=== PATIENT | male | born 1935 | race Caucasian/White ===

== ENCOUNTER 2018-03-29 10:36 | Day surgery (SDC) | payer OTHER ==
--- NOTE | 2018-03-28 17:46 | PREAC ---
Date/Time of Note Date/Time of Note DATE: 03/28/18 TIME: 17:44 Anesthesia Eval and Record Evaluation Time Pre-Procedure Interview DATE: 03/28/18 TIME: 17:44 Age 82 Sex male NPO: 8 hrs Preoperative diagnosis GI bleed Planned procedure EGD / Colonoscopy Past Medical History Past Medical History: Includes Cardio: HTN, Arrythmia (paroxysmal atrial fibrillation), CHF Endo: Diabetes Pulm: COPD, Other (respiratory failure) Renal: CKD GI: Obesity Surgery & Anesthesia Issues No known issue Meds Anticoagulation: No Beta Raheem within 24 hr: No Reason Beta Raheem not given: Pt. not on B-Raheem Meds reviewed: Yes Allergies Coded Allergies: No Known Allergy (Unverified , 03/08/18) Allergies Reviewed: Yes Labs/Studies Labs Reviewed: Reviewed by anesthesiologist test: N/A Pre-procedure Exam Airway: Adequate mouth opening Mallampati: Mallampati II Teeth: Normal Lung: Normal Heart: Normal ASA Physical Status ASA physical status: 3 Emergency: None Planned Anesthetic General/MAC: MAC Pre-operative Attestations Prior to commencing anesthesia and surgery, the patient was re-evaluated, there was verification of: *The patient's identity *The results of appropriate recent lab work and preoperative vital signs *The above evaluation not changing prior to induction *Anesthetic plan, risk benefits, alternative and complications discussed with patient/family; questions answered; patient/family understands, accepts and wishes to proceed. BUNNY TOLEDO Mar 28, 2018 17:46
[~2018-03-29] VITALS: Ht 180.3 cm; Wt 99.3 kg
--- NOTE | 2018-03-29 13:08 | HPN ---
Date/Time of Note Date/Time of Note DATE: 03/29/18 TIME: 13:08 Interval H&P Admission Note Pt. seen H&P reviewed: No system changes CHANO CHRISTIANSON MD Mar 29, 2018 13:08
[2018-03-29 13:10] VITALS: BP 134/71; PULSE 91; RESP 24
[2018-03-29] MEDS ORDERED: PROPOFOL 20 ML ONE (13:17)
[2018-03-29] MEDS ORDERED: FENTAnyl 50 MCG/ML VIAL ONE (13:18)
[2018-03-29 14:30] VITALS: BP 142/65; PULSE 80; RESP 21
--- NOTE | 2018-03-29 20:28 | PAC ---
Date/Time of Note Date/Time of Note DATE: 03/29/18 TIME: 20:27 Post-Anesthesia Notes Post-Anesthesia Note Last documented vital signs Vital Signs Date Temp Pulse Resp B/P (MAP) Pulse Ox O2 O2 Flow FiO2 Time Delivery Rate 03/29/18 98.1 80 21 142/65 4 Nasal 14:30 (90) Cannula 03/29/18 98.1 4.0 13:10 Activity: WNL Respiratory function: WNL Cardiovascular function: WNL Mental status: Baseline Pain reasonably controlled: Yes Hydration appropriate: Yes Nausea/Vomiting absent: No JOHN LIU MD Mar 29, 2018 20:28
== END 2018-03-29 15:47 | disposition home or self-care (01) ==
LOC: SDS 10:36 → GIL 10:36
PROVIDERS: ATTEND Internal Medicine Gastroenterology
DX: R19.5 Other fecal abnormalities (principal); K29.30 Chronic superficial gastritis without bleeding; I48.0 Paroxysmal atrial fibrillation; E11.9 Type 2 diabetes mellitus without complications; I13.0 Hypertensive heart and chronic kidney disease with heart failure and stage 1 through stage 4 chronic kidney disease, or unspecified chronic kidney disease; I50.9 Heart failure, unspecified; N18.9 Chronic kidney disease, unspecified
CPT/HCPCS: 88305; 88312; J3010